=== PATIENT | female | born 2000 | race Two or more races ===

== ENCOUNTER 2022-05-01 12:21 | Outpatient (REF) | payer MEDICAID, SELFPAY ==
--- NOTE | ~2022-05-01 | XR_ITS ---
EXAMINATION: XR ANKLE, RIGHT CLINICAL INFORMATION: Pain. COMPARISON: None TECHNIQUE: AP, lateral, and mortise views of the right ankle. FINDINGS: The bones and soft tissues are normal. No fracture. Alignment is anatomic. Joint spaces are maintained. No joint effusion. XR/XR ankle RT 2V IMPRESSION: Normal right ankle. EXAMINATION: XR ANKLE, LEFT CLINICAL INFORMATION: Pain. COMPARISON: None TECHNIQUE: AP, lateral, and mortise views of the left ankle. FINDINGS: The bones and soft tissues are normal. No fracture. Alignment is anatomic. Joint spaces are maintained. No joint effusion. IMPRESSION: Normal left ankle.
--- NOTE | ~2022-05-01 | XR_ITS ---
EXAMINATION: XR ANKLE, RIGHT CLINICAL INFORMATION: Pain. COMPARISON: None TECHNIQUE: AP, lateral, and mortise views of the right ankle. FINDINGS: The bones and soft tissues are normal. No fracture. Alignment is anatomic. Joint spaces are maintained. No joint effusion. XR/XR ankle LT 2V IMPRESSION: Normal right ankle. EXAMINATION: XR ANKLE, LEFT CLINICAL INFORMATION: Pain. COMPARISON: None TECHNIQUE: AP, lateral, and mortise views of the left ankle. FINDINGS: The bones and soft tissues are normal. No fracture. Alignment is anatomic. Joint spaces are maintained. No joint effusion. IMPRESSION: Normal left ankle.
== END 2022-05-01 12:22 | disposition home or self-care (01) ==
LOC: HO.XRAY 12:21
PROVIDERS: PCP Internal Medicine; Visit Provider Internal Medicine
DX: M25.571 Pain in right ankle and joints of right foot (principal); M25.572 Pain in left ankle and joints of left foot; G89.29 Other chronic pain
CPT/HCPCS: 73600

== ENCOUNTER 2023-12-02 11:52 | Outpatient (REF) | payer MEDICAID, SELFPAY ==
[2023-12-02 14:47] LABS: MANUAL DIFF FLAG NO
[2023-12-02 15:08] LABS: Basophils Percent Auto 0.3 % (0-2); Eosinophils Absolute Auto 0.1 X10*3/uL (0.0-0.4); Eosinophils Percent Auto 1.6 % (0-4); Hematocrit 40.1 % (37.0-47.0); Hemoglobin 13.6 g/dl (12.0-16.0); Imm Gran Abs Auto 0.04 X10*3/uL (0.00-0.03); Imm Gran Pct Auto 0.6 % (0.0-0.4); Lymphocytes Absolute Auto 1.7 X10*3/uL (1.2-4.9); Lymphocytes Percent Auto 26.9 % (20-40); Mean Corpuscular HGB Conc 33.9 g/dl (31.0-35.0); Mean Corpuscular Hemoglobin 29.8 pg (27.0-33.0); Mean Corpuscular Volume 87.7 fL (80.0-98.0); Mean Platelet Volume 11.4 fL (9.4-12.3); Monocytes Absolute Auto 0.5 X10*3/uL (0.1-1.2); Neutrophils Absolute Auto 4.1 x10*3/uL (2.0-8.3); Neutrophils Percent Auto 63.6 % (45-73); Platelet Count 221 X10*3/uL (160-400); Red Blood Count 4.57 X10*6/uL (4.20-5.50); Red Cell Distribution Width 12.7 % (11.0-16.0); White Blood Count 6.4 X10*3/uL (4.8-10.8)
[2023-12-02 15:40] LABS: Anion Gap 13 (12-20); Blood Urea Nitrogen 7 mg/dL (9-16); Calcium 9.5 mg/dL (8.4-10.2); Carbon Dioxide 22 mmol/L (22-29); Chloride 107 mmol/L (96-108); Estimated Glomerular Filt Rate > 60; Glucose Fasting 80 mg/dL (60-99); Potassium 4.1 mmol/L (3.3-5.1); Sodium 138 mmol/L (135-145)
[2023-12-02 16:06] LABS: HCG Quantitative < 2 mIU/mL; TSH reflex Free T4 1.82 uIU/mL (0.32-4.0)
== END 2023-12-02 11:53 | disposition home or self-care (01) ==
LOC: HO.CHCLDS 11:52
PROVIDERS: Visit Provider Internal Medicine
DX: R42 Dizziness and giddiness (principal); R00.2 Palpitations
CPT/HCPCS: 36415; 80048; 84443; 84702; 85025

== ENCOUNTER 2024-01-19 12:52 | Emergency (ER) | payer MEDICAID, SELFPAY ==
--- NOTE | ~2024-01-19 | US_ITS ---
EXAMINATION: US ABDOMEN LIMITED CLINICAL INFORMATION: Right upper quadrant pain. COMPARISON: None available. TECHNIQUE: Real-time imaging of the right upper quadrant abdominal viscera. FINDINGS: PANCREAS: Not imaged. LIVER: Visualized liver is normal in appearance. There is no intrahepatic biliary duct dilatation seen. GALLBLADDER: The gallbladder is partially contracted. No shadowing gallbladder calculi are seen. There is no gallbladder wall thickening or pericholecystic fluid. A negative Navarro sign was reported by the medical technologist. Ringdown artifact of the gallbladder wall suggests adenomyomatosis. COMMON BILE DUCT: Normal in caliber measuring 0.2 cm in diameter. RIGHT KIDNEY: Not imaged. FREE FLUID: None. US/US abdomen limited IMPRESSION: 1. No evidence of acute cholecystitis. 2. Gallbladder adenomyomatosis. Electronically signed by: Michi Oropeza MD 01/20/2024 12:57 AM EDT
--- NOTE | ~2024-01-19 | US_ITS ---
EXAMINATION: US OBSTETRICAL ULTRASOUND CLINICAL INFORMATION: Right lower quadrant pain and tenderness COMPARISON: None available. LMP: 12/23/2023. Gestational age by maternal dates is 20 weeks 6 days. Estimated date of delivery by maternal dates is 09/28/2024. TECHNIQUE: Both transabdominal and endovaginal scanning was performed. FINDINGS: Uterus appears normal. No gestational sac or fluid in the endometrial canal is seen. The endometrium measures 1.3 cm in thickness. No uterine masses are seen. The right ovary measures 3.4 x 2.5 x 3.2 cm and contains a complex probable corpus luteal cyst measuring 2.3 x 1.6 x 2.0 cm. Left ovary measures 2.8 x 2.1 x 2.1 cm small amount of fluid is seen in the left adnexa.. US/US OB pelvic and transvaginal IMPRESSION: Fluid is seen in the left adnexa. No intrauterine is identified at this time. Correlation with beta hCG levels is recommended, as nonvisualization of a gestational sac could be due to an early stage of . Alternatively, lack of an intrauterine gestational sac may also be seen with missed or ectopic , although no adnexal mass is seen to strongly suggest ectopic . Short-term sonographic follow-up and serial beta hCG levels are recommended to assess for development of an intrauterine gestational sac. . Electronically signed by: Orion Mancini MD 01/19/2024 05:30 PM EDT
[2024-01-19 13:25] VITALS: BP 133/88; PULSE 117; RESP 20; TEMP 36.8; O2SAT 97; BMI 27.6
--- NOTE | 2024-01-19 13:25 | ED.GENADULT ---
HPI - General Adult General Chief complaint: OB Stated complaint: r flank pain- Time Seen by Provider: 01/19/24 23:36 Source: patient Mode of arrival: ambulatory Limitations: no limitations History of Present Illness ED Provider: jing WEAVER narrative: Patient's LMP 12/23/2023 had Nexplanon removed last month and has not had her menstruation yet noticed pain in the lower abdominal right upper abdomen for last 3 days slight amount of blood when she wiped was seen at urgent care center sent the patient here. No nausea no vomiting no dysuria frequency Related Data Allergies Allergy/AdvReac Type Severity Reaction Status Date / Time No Known Allergies Allergy Verified 01/19/24 13:30 Review of Systems Review of Systems: Yes all other systems are reviewed and are negative PMFSH Social History Social History Alcohol intake: never Smoked in Last 30 Days: No Use of substances other than those prescribed or required for medical reasons: Yes Substance Use Type: Marijuana Advance Directives: No Advance Directives Information Provided: No Patient : Yes Physical Exam ED Vital Signs: Vital Signs - 24 hr 01/19/24 13:25 01/20/24 00:00 Temperature 98.3 F 98.3 F Pulse Rate 117 H 83 Respiratory Rate 20 18 Blood Pressure 133/88 110/70 Pulse Oximetry 97 99 Oxygen Delivery Method Room Air Room Air BMI result Body Mass Index 27.6 Appearance: Alert. Oriented X3. No acute distress. Eyes: No pallor or icterus ENT: Pharynx normal. Oral Mucosa moist Neck: Normal inspection. Neck supple. CVS: Normal heart rate and rhythm. Pulses normal. Respiratory: No respiratory distress. Equal air entry bilateral, no wheezing/rales/rhonchi Abdomen: Soft and mild deep tenderness right upper quadrant in right mid abdomen no significant tenderness in suprapubic area or right lower quadrant no guarding Bowel sounds are present, no mass palpable, no CVA tenderness Skin: Skin warm and dry. Normal skin color. Normal skin turgor. Extremities: No lower extremity edema. No calf tenderness Neuro: Oriented X 3. Course Course Course Narrative: This is a rapid medical exam performed by Aleksandra Ocampo NP: Additional HPI, ROS, PE not included below will be deferred to primary provider. Patient is a 23-year-old female presenting from urgent care for evaluation of RLQ/flank tenderness x 3 days. HCG was positive there, LMP around 12/22, denies fever but reports chills, denies N/V, has noted some hematuria. Provider at reports that she noted green discharge as well as friable cervix with lesions on pelvic exam. Referred patient here to r/o ectopic, PID, appy. Patient unsure if testing for STIs was done at . Plan: labs, u/s, ? repeat pelvic exam Medical Decision Making Lab Data [facility] Lab Attestation statement: I reviewed the patient's lab results. 01/19/24 14:20 01/19/24 14:20 Labs: Lab Results 01/19/24 Range/Units 14:20 WBC 10.0 (4.8-10.8) X10*3/uL RBC 4.66 (4.20-5.50) X10*6/uL Hgb 13.9 (12.0-16.0) g/dl Hct 39.8 (37.0-47.0) % MCV 85.4 (80.0-98.0) fL MCH 29.8 (27.0-33.0) pg MCHC 34.9 (31.0-35.0) g/dl RDW 12.3 (11.0-16.0) % Plt Count 224 (160-400) X10*3/uL MPV 10.2 (9.4-12.3) fL Immature Gran % (Auto) 0.7 H (0.0-0.4) % Neut % (Auto) 74.0 H (45-73) % Lymph % (Auto) 17.7 L (20-40) % [place] % (Auto) 6.2 (2-11) % Eos % (Auto) 1.0 (0-4) % Baso % (Auto) 0.4 (0-2) % Lymph # (Auto) 1.8 (1.2-4.9) X10*3/uL [place] # (Auto) 0.6 (0.1-1.2) X10*3/uL Eos # (Auto) 0.1 (0.0-0.4) X10*3/uL Baso # (Auto) 0.0 (0.0-0.2) X10*3/uL Abs Immat Gran (auto) 0.07 H (0.00-0.03) X10*3/uL Absolute Neuts (auto) 7.4 (2.0-8.3) x10*3/uL Absolute Nucleated RBC 0.000 (0.0-0.012) X10*3/uL Nucleated RBC % (auto) 0.0 (0.0-0.2) /100WBC PT 11.1 (11.1-13.3) SEC INR 0.9 (0.9-1.1) Sodium 136 (135-145) mmol/L Potassium 3.9 (3.3-5.1) mmol/L Chloride 108 (96-108) mmol/L Carbon Dioxide 21 L (22-29) mmol/L Anion Gap 11 L (12-20) BUN 9 (9-16) mg/dL Creatinine 0.77 (0.5-1.4) mg/dL Estim Creat Clear Calc 98.1 Estimated GFR > 60 Random Glucose 92 (60-115) mg/dL Lactic Acid 0.9 (0.5-2.0) mmol/L Calcium 9.4 (8.4-10.2) mg/dL Total Bilirubin 0.4 (0.0-1.0) mg/dL AST 13 (5-31) U/L ALT 11 (0-31) U/L Alkaline Phosphatase 60 (39-117) U/L Total Protein 7.4 (6.5-8.0) g/dL Albumin 4.4 (3.5-5.0) g/dL Beta HCG, Quant 34 mIU/mL Urine Color Yellow Urine Appearance Clear Urine pH 6.0 (5.0-9.0) Ur Specific [place] <= 1.005 (1.005-1.025) Urine Protein Negative (Neg-Trace) mg/dL Urine Glucose (UA) Negative (Negative) mg/dL Urine Ketones Negative (Negative) mg/dL Urine Blood Negative (Negative) Urine Nitrite Negative (Negative) Ur Leukocyte Esterase Negative (Negative) Independent Interpretation I performed an independent interpretation of an: Ultrasound Radiology Impression Discussion of test interpretation with radiology: I have reviewed the radiologist's reading. Discharge Plan Discharge Clinical Impression: Early stage of Patient Disposition: Home, Self-Care Instructions: Abdominal Pain in (ED) Additional Instructions: You have very early possible Need to recheck in 2 days for the status of by blood check/ultrasound Report to ER if pain in lower abdomen gets worse Follow up with staff occupational therapist if any questions Referrals: Jovan Delgado MD [Physician] - 2 days Print Language: Lao
[2024-01-19 14:27] LABS: MANUAL DIFF FLAG NO
[2024-01-19 14:30] LABS: Appearance Urine Clear; Color Urine Yellow; Glucose Urine UA Negative (Negative); Leukocyte Esterase Urine Negative (Negative); Nitrite Urine Negative (Negative); Specific Gravity - Urine <= 1.005 (1.005-1.025); Urine Blood Negative (Negative); Urine Ketones Negative (Negative); Urine Protein Negative (Neg-Trace)
[2024-01-19 14:37] LABS: Basophils Percent Auto 0.4 % (0-2); Eosinophils Absolute Auto 0.1 X10*3/uL (0.0-0.4); Hematocrit 39.8 % (37.0-47.0); Hemoglobin 13.9 g/dl (12.0-16.0); Imm Gran Abs Auto 0.07 X10*3/uL (0.00-0.03); Imm Gran Pct Auto 0.7 % (0.0-0.4); Lymphocytes Absolute Auto 1.8 X10*3/uL (1.2-4.9); Lymphocytes Percent Auto 17.7 % (20-40); Mean Corpuscular HGB Conc 34.9 g/dl (31.0-35.0); Mean Corpuscular Hemoglobin 29.8 pg (27.0-33.0); Mean Corpuscular Volume 85.4 fL (80.0-98.0); Mean Platelet Volume 10.2 fL (9.4-12.3); Monocytes Absolute Auto 0.6 X10*3/uL (0.1-1.2); Monocytes Percent Auto 6.2 % (2-11); Neutrophils Absolute Auto 7.4 x10*3/uL (2.0-8.3); Platelet Count 224 X10*3/uL (160-400); Red Blood Count 4.66 X10*6/uL (4.20-5.50); Red Cell Distribution Width 12.3 % (11.0-16.0)
[2024-01-19 14:39] LABS: Lactic Acid 0.9 mmol/L (0.5-2.0)
[2024-01-19 14:45] LABS: INTERNATIONAL NORM RATIO 0.9 (0.9-1.1); Prothrombin Time 11.1 SEC (11.1-13.3)
[2024-01-19 14:47] LABS: Alanine Aminotransferase 11 U/L (0-31); Albumin Level 4.4 g/dL (3.5-5.0); Alkaline Phosphatase 60 U/L (39-117); Anion Gap 11 (12-20); Aspartate Amino Transferase 13 U/L (5-31); Bilirubin Total 0.4 mg/dL (0.0-1.0); Blood Urea Nitrogen 9 mg/dL (9-16); Calcium 9.4 mg/dL (8.4-10.2); Carbon Dioxide 21 mmol/L (22-29); Chloride 108 mmol/L (96-108); Creatinine Clr Calc Pharmacy 98.1; Estimated Glomerular Filt Rate > 60; Glucose Random 92 mg/dL (60-115); Potassium 3.9 mmol/L (3.3-5.1); Sodium 136 mmol/L (135-145); Total Protein 7.4 g/dL (6.5-8.0)
[2024-01-19 14:49] LABS: HCG Quantitative 34 mIU/mL
[2024-01-20] VITALS: BP 110/70; PULSE 83; RESP 18; TEMP 36.8; O2SAT 99
[2024-01-20 02:36] VITALS: BP 112/58; PULSE 76; RESP 16; TEMP 36.8; O2SAT 98
[2024-01-20 07:41] LABS: Syphilis Screen Nonreactive (Nonreactive)
== END 2024-01-20 02:37 | disposition home or self-care (01) ==
PROVIDERS: Registered Nurse Emergency; Emergency Provider Internal Medicine
DX: O26.91 Pregnancy related conditions, unspecified, first trimester (principal); R10.31 Right lower quadrant pain; Z3A.01 Less than 8 weeks gestation of pregnancy; Z79.899 Other long term (current) drug therapy
CPT/HCPCS: 36415; 76705; 76801; 76817; 80053; 81003; 83605; 84702; 85025; 85610; 86780; 87040; 99284

== ENCOUNTER 2024-01-21 10:01 | Emergency (ER) | payer MEDICAID, SELFPAY ==
--- NOTE | ~2024-01-21 | US_ITS ---
EXAMINATION: US OBSTETRICAL ULTRASOUND CLINICAL INFORMATION: Positive hCG. COMPARISON: Pelvic ultrasound 01/19/2024. LMP: 12/23/2023. Gestational age by maternal dates is 4 weeks and 1 day. Estimated date of delivery by maternal dates is 09/28/2024. TECHNIQUE: Ultrasound of the maternal pelvis is performed using transabdominal and transvaginal transducers. Transvaginal imaging is performed due to inadequate visualization transabdominally. M-mode Doppler is also performed. FINDINGS: Normal uterine morphology. Homogeneous endometrial canal measuring 1.7 cm in thickness with a very small approximately 0.2 cm internal cystic observation, but otherwise no discrete focal abnormality. No yolk sac or pole identified. Normal morphology of the bilateral ovaries with preserved flow on color and spectral Doppler at the moment of this examination. The right ovary measures 3.6 x 2.1 x 1.7 cm, 6.9 mL and the left ovary measures 2.4 x 2 x 1.7 cm, 4.2 mL. There is a 2.4 x 1.8 x 1.9 cm partially collapsed corpus luteal cyst in the right ovary. No adnexal masses. No free fluid. US/US OB pelvic and transvaginal IMPRESSION: Very small cystic focus in the endometrial canal, indeterminate although potentially could represent a very small gestational sac. Recommend correlation with quantitative hCG and close attention on follow-up. No discrete adnexal mass. No pelvic free fluid. Electronically signed by: Shivani Mcintyre MD 01/21/2024 02:51 PM EDT
--- NOTE | ~2024-01-21 | US_ITS ---
EXAMINATION: US OBSTETRICAL ULTRASOUND CLINICAL INFORMATION: Positive hCG. COMPARISON: Pelvic ultrasound 01/19/2024. LMP: 12/23/2023. Gestational age by maternal dates is 4 weeks and 1 day. Estimated date of delivery by maternal dates is 09/28/2024. TECHNIQUE: Ultrasound of the maternal pelvis is performed using transabdominal and transvaginal transducers. Transvaginal imaging is performed due to inadequate visualization transabdominally. M-mode Doppler is also performed. FINDINGS: Normal uterine morphology. Homogeneous endometrial canal measuring 1.7 cm in thickness with a very small approximately 0.2 cm internal cystic observation, but otherwise no discrete focal abnormality. No yolk sac or pole identified. Normal morphology of the bilateral ovaries with preserved flow on color and spectral Doppler at the moment of this examination. The right ovary measures 3.6 x 2.1 x 1.7 cm, 6.9 mL and the left ovary measures 2.4 x 2 x 1.7 cm, 4.2 mL. There is a 2.4 x 1.8 x 1.9 cm partially collapsed corpus luteal cyst in the right ovary. No adnexal masses. No free fluid. US/US pelvic ovarian doppler IMPRESSION: Very small cystic focus in the endometrial canal, indeterminate although potentially could represent a very small gestational sac. Recommend correlation with quantitative hCG and close attention on follow-up. No discrete adnexal mass. No pelvic free fluid. Electronically signed by: Shivani Mcintyre MD 01/21/2024 02:51 PM EDT
[2024-01-21 10:02] VITALS: BP 104/68; PULSE 103; RESP 18; TEMP 37; O2SAT 97; BMI 27.6
[2024-01-21 11:03] LABS: HCG Quantitative 92 mIU/mL
--- NOTE | 2024-01-21 11:09 | ED_ITS ---
HPI - General Adult General Chief complaint: Recheck/Abnormal Lab/Rx Stated complaint: bloodwork/ultrasound Time Seen by Provider: 01/21/24 11:08 Source: patient Mode of arrival: ambulatory Limitations: no limitations History of Present Illness ED Provider: Caroline Dunn PA-C HPI narrative: Patient is a 23 year old assigned female at with no reported medical history presenting to the emergency department today for follow up labs and an ultrasound. Patient states that she was seen on 01/19/2024 and at that visit she was told that she may be but to return in 2 days for repeat lab work and an ultrasound. Patient denies any dizziness, lightheadedness, abdominal pain, nausea, vomiting, fever, chills, blurry vision, double vision, loss of vision, chest pain, difficulty breathing, shortness of breath, back pain, night sweats, pain with urination, increased urinary frequency, increased urinary urgency, blood in her urine or stool, syncope or a near syncopal episode, recent trauma or falls, bowel incontinence, bladder incontinence, or any other complaints at this time. Relieving factors: none Exacerbating factors: none Associated symptoms: denies other symptoms Treatments prior to arrival: none Related Data Allergies Allergy/AdvReac Type Severity Reaction Status Date / Time No Known Allergies Allergy Verified 01/21/24 10:06 Review of Systems Constitutional: Constitutional: Reports no additional constitutional complaints, Denies chills, Denies fever(s) and Denies night sweats Eyes: Eyes: Reports no additional eye complaints, Denies blurry vision, Denies change in vision, Denies diplopia, Denies eye discharge, Denies loss of vision and Denies eye pain ENT: Denies dizziness Cardiovascular: Cardiovascular: Reports no additional cardiovascular complaints, Denies chest pain, Denies lightheadedness, Denies Loss of Consciousness and Denies dyspnea Respiratory: Respiratory: Reports no additional respiratory complaints and Denies dyspnea Gastrointestinal: Gastrointestinal: Reports no additional gastrointestinal complaints, Denies abdominal pain, Denies melena, Denies hematochezia, Denies change in bowel habits and Denies change in stool character Genitourinary: Genitourinary: Denies hematuria, Denies urinary frequency, Denies dysuria, Denies urinary incontinence, Denies urinary hesitancy and Denies urinary urgency Musculoskeletal: Musculoskeletal: Reports no additional musculoskeletal complaints, Denies numbness and Denies tingling Neurologic: Denies dizziness, Denies loss of vision, Denies numbness and Denies tingling Psychiatric: Psychiatric: Reports no additional psychiatric complaints Endocrine: Endocrine: Reports no additional endocrine complaints Hematologic/Lymphatic: Hematologic/Lymphatic: Reports no additional hematologic/lymphatic complaints Allergic/Immunologic: Allergic/Immunologic: Reports no additional allergic/immunologic complaints [facility] Past Medical History Attestation statement: The following information was validated with the patient. Source: old records reviewed and nursing notes reviewed Social History Social History Alcohol intake: never Substance Use Type: Marijuana Advance Directives: No Advance Directives Information Provided: Yes Physical Exam ED Vital Signs: Vital Signs - 24 hr 01/21/24 10:02 01/21/24 12:00 01/21/24 13:44 Temperature 98.6 F 98.4 F 98.4 F Pulse Rate 103 H 94 94 Respiratory Rate 18 18 18 Blood Pressure 104/68 115/62 115/62 Pulse Oximetry 97 97 97 Oxygen Delivery Method Room Air Room Air Room Air BMI result Body Mass Index 27.6 Const General: cooperative, no acute distress, alert and awake Nutritional Appearance: well nourished Orientation/consciousness: patient oriented x3 Limitations: no limitations HENMT Head: Yes normal to inspection and Yes atraumatic Ears: hearing grossly normal bilaterally and external ears normal General nose exam: Normal external nose present, no nasal discharge noted and no epistaxis Face and sinus: Yes normal facial exam, No abrasion and No laceration Mouth: Normal oral and palatal mucosa present, no drooling and no muffled voice Eyes General: appearance normal, both eyes and all related structures Periorbital: periorbital findings normal Eyelids: Yes eyelids normal Conjunctivae: conjunctivae normal Pupils: Equal, round and reactive pupils present EOM: EOMs intact bilaterally Neck Neck: Yes normal visual inspection, Yes full ROM and Yes no lymphadenopathy Chest Chest palpation & inspection: normal inspection of the chest Resp Effort & Inspection: normal respiratory effort and able to speak in complete sentences GI Inspection: Yes normal to inspection Neuro General: patient oriented x3 and moves all extremities Cranial nerves: Yes Equal, round and reactive pupils present Cognition (Neuro): normal cognition Extrem General: Yes normal to inspection, Yes full ROM and Yes capillary refill normal Psych Appearance: grossly normal Mental Status: mental status grossly normal Affect: normal affect Attitude: cooperative Thought process: Normal thought process present Thought content: Normal thought content present Insight: Good insight present (Psych) Medical Decision Making Medical Decision Making [facility] Narrative: Patient is a 23 year old assigned female at with no reported medical h istory presenting to the emergency department today for HCG re-evaluation. Patient's physical exam was unremarkable. Patient's blood work showed an increased HCG when compared to the level drawn on 01/19/2024. Patient's US showed no acute process. I explained my physical exam findings as well as all test results to the patient. I answered all questions asked by the patient. I stressed the importance of the patient taking her medication as directed (either prescribed or as the over the counter packaging recommends). I stressed the importance of the patient following up with her primary care provider and an OBGYN. I stressed the importance of the patient returning to the emergency department immediately if her symptoms were to worsen or if she were to develop any dizziness, shortness of breath, difficulty breathing, chest pain, blurry vision, loss of vision, nausea, vomiting, abdominal pain, fever, chills, back pain, or any other complaints. Patient verbalized agreement and understanding with this treatment plan and discharge. Differential Diagnosis Differential Diagnoses: The differential diagnosis associated with the pres entation includes Admission/Observation Consideration of admission/observation: Escalation of care including admissio n/observation considered Patient would have been admitted to the hospital had her work up had any findings where hospital admission was appropriate and her clinical presentation warranted hospital admission. Lab Data [facility] Lab Attestation statement: I reviewed the patient's lab results. My interpretation of these results are in the [facility] Rationale portion of this note. Labs: Lab Results 01/21/24 Range/Units 10:32 Beta HCG, Quant 92 mIU/mL Independent Interpretation I performed an independent interpretation of an: Ultrasound Interpretation: My interpretation is in agreement with the radiologist's impression of this imaging study. EXAMINATION: US OBSTETRICAL ULTRASOUND CLINICAL INFORMATION: Positive hCG. COMPARISON: Pelvic ultrasound 01/19/2024. LMP: 12/23/2023. Gestational age by maternal dates is 4 weeks and 1 day. Estimated date of delivery by maternal dates is 09/28/2024. TECHNIQUE: Ultrasound of the maternal pelvis is performed using transabdominal and transvaginal transducers. Transvaginal imaging is performed due to inadequate visualization transabdominally. M-mode Doppler is also performed. FINDINGS: Normal uterine morphology. Homogeneous endometrial canal measuring 1.7 cm in thickness with a very small approximately 0.2 cm internal cystic observation, but otherwise no discrete focal abnormality. No yolk sac or pole identified. Normal morphology of the bilateral ovaries with preserved flow on color and spectral Doppler at the moment of this examination. The right ovary measures 3.6 x 2.1 x 1.7 cm, 6.9 mL and the left ovary measures 2.4 x 2 x 1.7 cm, 4.2 mL. There is a 2.4 x 1.8 x 1.9 cm partially collapsed corpus luteal cyst in the right ovary. No adnexal masses. No free fluid. US/US OB pelvic and transvaginal IMPRESSION: Very small cystic focus in the endometrial canal, indeterminate although potentially could represent a very small gestational sac. Recommend correlation with quantitative hCG and close attention on follow-up. No discrete adnexal mass. No pelvic free fluid. Electronically signed by: Shivani Mcintyre MD 01/21/2024 02:51 PM EDT Dictated By: Shivani Mcintyre Signed By: Electronically signed by Shivani Mcintyre 01/21/24 1452 Radiology Impression Discussion of test interpretation with radiology: I have reviewed the radiologist's reading. Discharge Plan Discharge Clinical Impression: Possible , Elevated serum hCG Patient Disposition: Home, Self-Care Instructions: (ED) Additional Instructions: Your HCG level went up over the last 2 days. This is consistent with early however, it can also be consistent with early ectopic . Your US was reassuring but requires continued follow up. Follow up with your primary care provider and an OBGYN. Return to the emergency department immediately if your symptoms worsen or if you develop any dizziness, shortness of breath, difficulty breathing, chest pain, blurry vision, loss of vision, nausea, vomiting, abdominal pain, fever, chills, back pain, or any other complaints. Referrals: Nena Morin MD [Primary Care Provider] - Jovan Delgado MD [Physician] - (Call to establish and follow up with an OBGYN. ) Interventions: ED Discharge Assessment Last Done: 01/21/24 13:44 Discharge Date/Time: 01/21/24 13:45 Print Language: Latvian
[2024-01-21 12:00] VITALS: BP 115/62; PULSE 94; RESP 18; TEMP 36.9; O2SAT 97
[2024-01-21 13:44] VITALS: BP 115/62; PULSE 94; RESP 18; TEMP 36.9; O2SAT 97
== END 2024-01-21 13:45 | disposition home or self-care (01) ==
PROVIDERS: Emergency Provider Emergency Medicine; PCP Internal Medicine
DX: O02.81 Inappropriate change in quantitative human chorionic gonadotropin (hCG) in early pregnancy (principal); R10.2 Pelvic and perineal pain; R79.89 Other specified abnormal findings of blood chemistry; Z79.899 Other long term (current) drug therapy
CPT/HCPCS: 36415; 76801; 76817; 84702; 93975; 99283; 99284

== ENCOUNTER 2024-10-16 12:32 | Outpatient (REF) | payer MEDICAID, SELFPAY ==
--- OUTSIDE RECORDS SUMMARY | 2024-10-16 13:54 | XMS_ITS | Encounter Summary ---
Author Organization [email or web address] Address [address] [place] [address] [address] [place] [address] Care Team Providers Care [employer] V[employer] Worker Name Role Phone Nena Morin MD Primary Care Provider [phone] Encounter Details Date Type Department Care Team (Late Contact Info) Description 06/09/2024 Telephone [facility] [address] [place] [address] Nena Morin MD [address] [place] [address] Social History Tobacco Use Types Packs/Day Years Used Date Smoking Tobacco: Never Smokeless Tobacco: Never Alcohol Use Standard Drinks/Week Comments Never 0 (1 standard drink = 0.6 oz pur e alcohol) Depression Answer Date Recorded Patient Health Questionnaire-9 Score 9 02/16/2023 Patient Health Questionnaire-9 Score 9 02/16/2023 Last PHQ-9: Questionnaire Data Not on file 1 Depression Answer Date Recorded Patient Health Questionnaire-2 Score 1 02/16/2023 Comments Unknown Sex and Gender Information Value Date Recorded Sex Assigned at Female 03/02/2022 10:39 AM EDT Legal Sex Female 10:39 AM EDT Gender Identity Female 03/02/2022 10:39 AM EDT Sexual Orientation Choose not to disclose 2021 10:39 AM EDT documented as of this encounter Plan of Treatment Upcoming Encounters Date Type Department Care Team ([facility] Contact Info) Description 11/21/2024 2:00 PM EDT Office Visit [facility] [address] [place] [address] Nena Morin MD [address] [place] [address] documented as of this encounter Visit Diagnoses Not on filedocumented in this encounter Additional Health Concerns Assessment Noted Time PHQ-9 Depression Total Score: 9 02/17/20 23 2:22 PM EDT documented as of this encounter Care Teams [employer] Worker Relationship Specialty Start Date End Date Nena Morin MD [address] [place] [address] PCP - General Internal Medicine 01/20/21 Natividad Suarez [employer] Ironer 08/11/24 documented as of this encounter
[2024-10-16 14:21] LABS: Appearance Urine Clear; Color Urine Yellow; Glucose Urine UA Negative (Negative); Leukocyte Esterase Urine Moderate (2+) (Negative); Nitrite Urine Negative (Negative); PH 6.5 (5.0-9.0); UMIC TRIGGER UA YES; Urine Blood Large (3+) (Negative); Urine Ketones Negative (Negative); Urine Protein Trace mg/dL (Neg-Trace)
[2024-10-16 14:26] LABS: Bacteria Urine 1+ (None Seen); Hyaline Casts Urine 0-2 /LPF (0-2); RBC Urine >20 /HPF (0-2); WBC Urine >50 /HPF (0-5)
[2024-10-16 14:56] LABS: Total Protein Urine Random 20 mg/dL (<12)
== END 2024-10-16 12:33 | disposition home or self-care (01) ==
LOC: HO.CHCLDS 12:32
PROVIDERS: Visit Provider Internal Medicine
DX: I10 Essential (primary) hypertension (principal)
CPT/HCPCS: 81001; 84156

== ENCOUNTER 2024-11-06 12:34 | Outpatient (REF) | payer MEDICAID, SELFPAY ==
--- OUTSIDE RECORDS SUMMARY | 2024-11-06 13:09 | XMS_ITS | Encounter Summary ---
Author Organization [employer] Address [address] [place] [address] Care Team Providers Care Ssis Developer Name Role Phone Nena Morin MD Primary Care Provider [phone] Reason for Visit * Reason Comments Care Coordination [id number]/LENNOX Mcfadden- Follow up call Encounter Details Date Type Department Care Team (Latest Contact Info) Description 11/02/[address] [facility] [address] [place] [address] Nena Morin MD [address] [place] [address] Care Coordination (LENNOX Delgado- Follow up call) Social History Tobacco Use Types Packs/Day Years Used Date Smoking Tobacco: Never Smokeless Tobacco: Never Alcohol Use Standard Drinks/Week Comments Never 0 (1 standard drink = 0.6 oz pur e alcohol) Depression Answer Date Recorded Patient Health Questionnaire-9 Score 3 10/16/2024 Patient Health Questionnaire-9 Score 3 10/16/2024 Last PHQ-9: Questionnaire Data Not on file 0 10/16/2024 Housing Stability Answer Date Recorded What is your housing situation today? I have robin ezio 07/19/[address] you li ve. Do you have problems with any of the following? None of the above 07/19/2024 Food Insecurity Answer Date Recorded Within the past 12 months, y ou worried that your food would run out before you got money to buy more: Never True 07/19/2024 Within the past 12 months,th e food you bought just didn't last and you didn't have enough money to get more: Never True Transportation Answer Date Recorded In the past 12 months, has l ack of transportation kept you from medical appts, meetings, work or from getting things needed for daily living? No 07/19/2024 Utilities Answer Date Recorded In the past 12 months, has t he electric, gas, oil or water company threatened to shut off services in your home? No 07/19/2024 Depression Answer Date Recorded Patient Health Questionnaire-2 Score 0 10/16/2024 Internet Access Answer Date Recorded Internet Access Q1 Yes 07/19/2024 Internet Access Q2 Not on file 07/19/2024 Estimated Date of Delivery Comme nts Yes 10/01/2024 Based on [facility] [place] Sex and Gender Information Value Date Recorded Sex Assigned at Female 03/02/2022 10:39 AM EDT Legal Sex Female 10:39 AM EDT Gender Identity Female 03/02/2022 10:39 AM EDT Sexual Orientation Choose not to disclose 2021 10:39 AM EDT documented as of this encounter Progress Notes * Oxana Cerda - 11/02/2024 3:54 PM EDT CHW Oxana Cerda, placed outbound call to patient introducing herself calling from [facility]. Patient's name, and address confirmed. CHW followed up on apartment search. Patient states not sure if she received link CHW sent via [employer]. CHW sent it again: [employer] in [place] while patient was on the phone as CHW was able to confirm with received. Patient to check link and reach out to CHW if further assistance is needed. CHW reminded patient of safety first. Not going alone to meet anyone, verifying rental property, not giving montoya deposit ect. Patient verbalized understanding. No further questions or concerns. CHW reinforced direct contact information for any additional questions or concerns and extended clinic hours on Mondays and Wednesdays, and Walk-In Urgent Care Located in [facility]. Patient provided with after-hours line for [facility], , which offer night time triage service and option to transfer to radiation control health physicist provider if needed. Patient verbalizes understanding, and able to repeat back to typewriter ribbon winder. A follow up call will be placed within 10 days, patient agrees with plan. documented in this encounter Plan of Treatment Upcoming Encounters Date Type Department Care Team (Late st Contact Info) Description 11/21/2024 2:00 PM EDT Office Visit [facility] [address] [place] [address] Nena Morin MD [address] [place] [address] documented as of this encounter Visit Diagnoses Not on filedocumented in this encounter Additional Health Concerns Assessment Noted Time PHQ-9 Depression Total Score: 3 10/17/19 25 12:13 PM EDT documented as of this encounter Care Teams Ssis Developer Relationship Specialty Start Date End Date Nena Morin MD [address] [place] [address] PCP - General Internal Medicine 01/20/21 Natividad Suarez Soil Checker 08/11/24 documented as of this encounter
--- OUTSIDE RECORDS SUMMARY | 2024-11-06 13:09 | XMS_ITS | Clinical Summary ---
Author Organization Patient Business [employer] [facility] Address [address] [place] [address] Care Team Providers Care Body Wirer Name Role Phone Nena Morin MD Primary Care Provider [phone] Allergies No known active allergies Medications No known medications Active Problems No known active problems Encounters Date Type Department Care Team Description 10/31/2024 10:17 AM EDT - 10/31/2024 1:08 PM EDT Emergency [facility] Emergency [address] [place] [address] Byron James DO Chest pain, unspecified type (Primary Dx); Acute chest pain; Shortness of breath Discharge Disposition: Home or Self Care from Last 3 Months Social History Tobacco Use Types Packs/Day Years Used Date Smoking Tobacco: Never Assessed Comments Unknown Sex and Gender Information Value Date Recorded Sex Assigned at Not on file Legal Sex Female 4:55 AM EST Gender Identity Not on file Sexual Orientation Not on file Obstetrics History Last Filed Vital Signs Vital Sign Reading Time Taken Comments Blood Pressure 120/81 10/31/2024 10:49 AM EDT Pulse 87 10/31/2024 10:49 AM EDT Temperature 36.6 C (97.9 F) 10/31/2024 10:49 AM EDT Respiratory Rate 20 10/31/2024 10:49 AM EDT Oxygen Saturation 97% 10/31/2024 10:49 AM EDT Inhaled Oxygen Concentration - - Weight 72.6 kg (160 lb) 10/31/2024 6:37 AM EDT Height 154.9 cm (5' 1 ) 10/31/2024 6:37 AM EDT Body Mass Index 30.23 10/31/2024 6:37 AM EDT Plan of Treatment Health Maintenance Due Date Last Done Comments Gonorrhea/Chlamydia Screening 1999 Hepatitis A Vaccines (2 of 2 - 2-dose series) 11/08/2018 05/11/2018 Cervical Cancer Screening: Pap Smear 12/04/2020 Cholesterol Screening (Lipid Panel) 04/12/2023 HIV Screening 04/12/2023 Hepatitis C Screening 04/12/2023 Social Influencers of Health Screening 04/12/2023 COVID-19 Vaccine ( season) 2024 Influenza Vaccine (#1) 2025 9, 02/23/2017, 01/15/2016, Additional history exists Depression Screening 10/16/2025 10/16/2024 Hypertension/CHF/CAD Annual BMP Blood Test 10/31/2025 10/31/2024 DTaP,Tdap,and Td Vaccines (9 - Td or Tdap) 07/11/2034 07/11/2024, 10/26/2016, 03/07/2012, Additional history exists HIB Vaccines Completed 03/30/2001, 05/04, 03/22/2000, Additional history exists Hepatitis B Vaccines Completed 03/30/2001, 10/01/2000, 1999 Pneumococcal Vaccine: Pediatrics (0 to 5 Years) and At-Risk Patients (6 to 49 Years) Completed 03/30/2001, 05/27/2000, 03/22/2000, Additional history exists IPV Vaccines Completed 02/04/2004, 05/04, 03/22/2000, Additional history exists MMR Vaccines Completed 02/04/2004, 12/24/2000 Varicella Vaccines Completed 01/31/2010, 12/24/2000 HPV Vaccines Completed 11/09/2012, 07/01, 05/09/2012 Meningococcal ACWY Vaccine Completed 02/23/2017, Meningococcal B Vaccine Aged Out No l onger eligible based on patient's age to complete this topic RSV Immunization Patients Under 20 months Aged Out No longer eligible based on patient's age to complete this topic Procedures Procedure Name Priority Date/Time Associated Diagnosis Comments CT ANGIO CHEST WO AND/OR W CONTRAST STAT 10/31/2024 12:09 PM EDT Chest pain, unspecified type TROPONIN I HIGH SENSITIVITY STAT 10/31/2024 10:49 AM EDT XR CHEST 2 VIEWS STAT 10/31/2024 9:36 AM EDT CBC WITH AUTO DIFFERENTIAL STAT 10/31/2024 7:53 AM EDT B-TYPE NATRIURETIC PEPTIDE STAT 10/31/2024 7:53 AM EDT MAGNESIUM STAT 10/31/2024 7:53 AM EDT LIPASE STAT 10/31/2024 7:53 AM EDT COMPREHENSIVE METABOLIC PANEL STAT 10/31/2024 7:53 AM EDT CBC AND DIFFERENTIAL STAT 10/31/2024 7:53 AM EDT TROPONIN I HIGH SENSITIVITY STAT 10/31/2024 7:53 AM EDT ECG 12-LEAD STAT 10/31/2024 6:41 AM EDT from Last 3 Months Results * CT Angio Chest wo and/or w Contrast (10/31/2024 12:09 PM EDT) Anatomical Region Laterality Modality Body Computed Tomogra phy 10/31/2024 12:1 8 PM EDT Impressions 10/31/2024 12:24 PM EDT 1. No pulmonary embolism. No acute findings. 2. Stable 13 x 10 mm soft tissue nodule in the left paratracheal region adjacent to the lower pole of the left thyroid lobe. Unclear whether this arises from or immediately adjacent to the thyroid. This could be further evaluated with ultrasound. -------- FINAL REPORT -------- Dictated By: Loki Farley Dictated Date: 10/31/2024 12:18 ET Assigned Physician: Loki Farley Reviewed and Electronically Signed By: Loki Farley Signed Date: 10/31/2024 12:24 ET Workstation ID: [id number] Transcribed By: Self Edit Transcribed Date: 10/31/2024 12:18 ET Narrative 10/31/2024 12:24 PM EDT PROCEDURE: CT pulmonary angiogram. HISTORY: PE suspected, high prob. TECHNIQUE: CT of the chest with intravenous contrast administration with pulmonary angiogram protocol. Coronal and sagittal reformats and MIP reconstructions were created. Dose length product: 300 mGy-cm. Contrast dose: 90 mL ISOVUE-370. COMPARISON: 07/18/2022. FINDINGS: LUNGS/PLEURA: There is a small right posterior tracheal diverticulum. Normal caliber airways with no endobronchial filling defect. Mild bilateral dependent atelectasis. No pleural effusion or pneumothorax. MEDIASTINUM/CHAVA: There is a stable 1.3 x 1.0 cm left paratracheal soft tissue nodule. Unclear whether this arises adjacent to or is exophytic from the lower pole of the left thyroid lobe. No hilar lymphadenopathy. VASCULATURE: Normal caliber pulmonary arteries. No pulmonary embolism. Normal appearance of the great vessels. CARDIAC: Normal heart size. No coronary artery calcification. CHEST WALL: No axillary or supraclavicular lymphadenopathy. LIMITED ABDOMEN: Unremarkable. BONES: Slight S-shaped curvature of the thoracic spine. Procedure Note Loki Farley MD - 10/31/2024 PROCEDURE: CT pulmonary angiogram. HISTORY: PE suspected, high prob. TECHNIQUE: CT of the chest with intravenous contrast administration withpulmonary angiogram protocol. Coronal and sagittal reformats and MIPreconstructions were created. Dose length product: 300 mGy-cm. Contrast dose: 90 mL ISOVUE-370. COMPARISON: 07/18/2022. FINDINGS: LUNGS/PLEURA: There is a small right posterior tracheal diverticulum.Normal caliber airways with no endobronchial filling defect. Mildbilateral dependent atelectasis. No pleural effusion or pneumothorax. MEDIASTINUM/CHAVA: There is a stable 1.3 x 1.0 cm left paratracheal softtissue nodule. Unclear whether this arises adjacent to or is exophyticfrom the lower pole of the left thyroid lobe. No hilar lymphadenopathy. VASCULATURE: Normal caliber pulmonary arteries. No pulmonary embolism.Normal appearance of the great vessels. CARDIAC: Normal heart size. No coronary artery calcification. CHEST WALL: No axillary or supraclavicular lymphadenopathy. LIMITED ABDOMEN: Unremarkable. BONES: Slight S-shaped curvature of the thoracic spine. IMPRESSION: 1. No pulmonary embolism. No acute findings. 2. Stable 13 x 10 mm soft tissue nodule in the left paratracheal regionadjacent to the lower pole of the left thyroid lobe. Unclear whether thisarises from or immediately adjacent to the thyroid. This could be furtherevaluated with ultrasound. -------- FINAL REPORT -------- Dictated By: Loki Farley Dictated Date: 10/31/2024 12:18 ET Assigned Physician: Loki Farley Reviewed and Electronically Signed By: Loki Farley Signed Date: 10/31/2024 12:24 ET Workstation ID: [id number] Transcribed By: Self Edit Transcribed Date: 10/31/2024 12:18 ET Byron James DO IMG CT PROCEDURES Final Res ult * Troponin I high sensitivity (10/31/2024 10:49 AM EDT) Only the most recent of2 resultswithin the time period is included. High Sensitivity Troponin I <3 <=54 ng/L LAB CHEMISTRY METHOD 10/31/2024 12:01 PM EDT [facility] Blood Venous blood specimen / Unknown Venipuncture / Unknown 10/31/2024 10:49 AM EDT 10/31/2024 11:12 AM EDT Narrative [facility] - 10/31/2024 12:01 PM EDT High levels of biotin in samples may falsely decrease hsTroponin values. Use caution when interpreting hsTroponin results in patients taking biotin who exhibit renal impairment (eGFR <60) or in patients taking more than 20 mg/day of biotin. us Byron James DO LAB BLOOD ORDERABLES Final Result [facility] [address] [place] [address], [place] [phone] * XR Chest 2 Views (10/31/2024 9:36 AM EDT) Anatomical Region Laterality Modality Body Radiographic [place] ging 10/31/2024 9:43 AM EDT Impressions 10/31/2024 9:44 AM EDT No acute findings. -------- FINAL REPORT -------- Dictated By: Loki Farley Dictated Date: 10/31/2024 09:43 ET Assigned Physician: Loki Farley Reviewed and Electronically Signed By: Loki Farley Signed Date: 10/31/2024 09:44 ET Workstation ID: [id number] Transcribed By: Self Edit Transcribed Date: 10/31/2024 09:43 ET Narrative 10/31/2024 9:44 AM EDT PROCEDURE: PA and lateral radiographs of the chest. HISTORY: chest pain. COMPARISON: 07/17/2022. FINDINGS: Lungs, pleural spaces, pulmonary vasculature, and cardiomediastinal contours are normal. Partially visible lower thoracic and lumbar S-shaped scoliosis. Procedure Note Loki Farley MD - 10/31/2024 PROCEDURE: PA and lateral radiographs of the chest. HISTORY: chest pain. COMPARISON: 07/17/2022. FINDINGS: Lungs, pleural spaces, pulmonary vasculature, and cardiomediastinalcontours are normal. Partially visible lower thoracic and lumbar S-shapedscoliosis. IMPRESSION: No acute findings. -------- FINAL REPORT -------- Dictated By: Loki Farley Dictated Date: 10/31/2024 09:43 ET Assigned Physician: Loki Farley Reviewed and Electronically Signed By: Loki Farley Signed Date: 10/31/2024 09:44 ET Workstation ID: [id number] Transcribed By: Self Edit Transcribed Date: 10/31/2024 09:43 ET Byron James DO IMG XR PROCEDURES Final Res ult * (ABNORMAL) CBC auto differential (10/31/2024 7:53 AM EDT) [facility] WBC 6.4 4.8 - 10.8 K/mcL LAB HEMETOLOGY METHOD 10/31/2024 8:23 AM [facility] RBC 5.20(H) 3.80 - 4.80 M/mcL LAB HEMETOLOGY METHOD 10/31/2024 8:23 AM [facility] Hemoglobin 13.6 11.5 - 16.0 g/dL LAB HEMETOLOGY METHOD 10/31/2024 8:23 AM [facility] Hematocrit 43.8 35.0 - 47.0 % LAB HEMETOLOGY METHOD 10/31/2024 8:23 AM [facility] MCV 83.7 79.0 - 98.0 FL LAB HEMETOLOGY METHOD 10/31/2024 8:23 AM [facility] MCH 26.0(L) 27.0 - 32.0 pcg LAB HEMETOLOGY METHOD 10/31/2024 8:23 AM [facility] MCHC 31.1(L) 32.0 - 37.0 g/dL LAB HEMETOLOGY METHOD 10/31/2024 8:23 AM [facility] RDW 15.2(H) 11.0 - 15.0 % LAB HEMETOLOGY METHOD 10/31/2024 8:23 AM [facility] Platelets 239 130 - 400 K/mcL LAB HEMETOLOGY METHOD 10/31/2024 8:23 AM [facility] MPV 11.6(H) 7.0 - 11.0 FL LAB HEMETOLOGY METHOD 10/31/2024 8:23 AM [facility] NRBC 0.0 <1.0 % LAB HEMETOLOGY METHOD 10/31/2024 8:23 AM [facility] NRBC Absolute 0.00 <0.10 K/mcL LAB HEMETOLOGY METHOD 10/31/2024 8:23 AM [facility] Neutrophils Relative 58.2 % LAB HEMETOLOGY METHOD 10/31/2024 8:23 AM [facility] Lymphocytes Relative 29.8 % LAB HEMETOLOGY METHOD 10/31/2024 8:23 AM [facility] Monocytes Relative 8.0 % LAB HEMETOLOGY METHOD 10/31/2024 8:23 AM [facility] Eosinophils Relative 3.1 % LAB HEMETOLOGY METHOD 10/31/2024 8:23 AM [facility] Basophils Relative 0.3 % LAB HEMETOLOGY METHOD 10/31/2024 8:23 AM [facility] Immature Granulocytes Relative 0.6 % LAB HEMETOLOGY METHOD 10/31/2024 8:23 AM [facility] Neutrophils Absolute 3.71 1.50 - 7.00 K/mcL LAB HEMETOLOGY METHOD 10/31/2024 8:23 AM [facility] Lymphocytes Absolute 1.90 1.00 - 5.00 K/mcL LAB HEMETOLOGY METHOD 10/31/2024 8:23 AM [facility] Monocytes Absolute 0.51 0.20 - 1.00 K/mcL LAB HEMETOLOGY METHOD 10/31/2024 8:23 AM [facility] Eosinophils Absolute 0.20 0.00 - 0.50 K/mcL LAB HEMETOLOGY METHOD 10/31/2024 8:23 AM [facility] Basophils Absolute 0.02 0.00 - 0.20 K/mcL LAB HEMETOLOGY METHOD 10/31/2024 8:23 AM [facility] Immature Granulocytes Absolute 0.04(H) 0.00 - 0.03 K/mcL LAB HEMETOLOGY METHOD 10/31/2024 8:23 AM EDT [facility] Blood Venous blood specimen / Unknown Venipuncture / Unknown 10/31/2024 7:53 AM EDT 10/31/2024 8:17 AM EDT us Byron James DO LAB BLOOD ORDERABLES Final Result Performing Organization Address [facility]/ZIP Co de Phone Number [facility] [address] [place] [address], [place] [phone] * B-type natriuretic peptide (10/31/2024 7:53 AM EDT) BNP 2 <=100 pcg/mL LAB CHEMISTRY METHOD 10/31/2024 8:53 AM EDT [facility] Blood Venous blood specimen / Unknown Venipuncture / Unknown 10/31/2024 7:53 AM EDT 10/31/2024 8:17 AM EDT us Byron James DO LAB BLOOD ORDERABLES Final Result Performing Organization Address [facility] de Phone Number [facility] [address] [place] [address], [place] [phone] * Magnesium (10/31/2024 7:53 AM EDT) Magnesium 2.0 1.9 - 2.6 mg/dL LAB CHEMISTRY METHOD 10/31/2024 8:59 AM EDT [facility] Blood Venous blood specimen / Unknown Venipuncture / Unknown 10/31/2024 7:53 AM EDT 10/31/2024 8:17 AM EDT us Byron James DO LAB BLOOD ORDERABLES Final Result Performing Organization Address City/[facility]/ZIP Co de Phone Number [facility] [address] [place] [address], [place] [phone] * Lipase (10/31/2024 7:53 AM EDT) Pathologist [facility] Lipase 26 13 - 75 unit/L LAB CHEMISTRY METHOD 10/31/2024 8:59 AM [facility] Blood Venous blood specimen / Unknown Venipuncture / Unknown 10/31/2024 7:53 AM EDT 10/31/2024 8:17 AM EDT Byron James DO LAB BLOOD ORDERABLES Final Result [facility] [address] [place] [address], [place] [phone] * Comprehensive metabolic panel (10/31/2024 7:53 AM EDT) [facility] Sodium 137 133 - 145 mmol/L LAB CHEMISTRY METHOD 10/31/2024 8:59 AM [facility] Potassium 4.6 3.5 - 5.5 mmol/L LAB CHEMISTRY METHOD 10/31/2024 8:59 AM [facility] Chloride 105 96 - 110 mmol/L LAB CHEMISTRY METHOD 10/31/2024 8:59 AM [facility] CO2 26 21 - 32 mmol/L LAB CHEMISTRY METHOD 10/31/2024 8:59 AM [facility] Anion Gap 6 3 - 11 LAB CHEMISTRY METHOD 10/31/2024 8:59 AM [facility] Glucose 94 70 - 100 mg/dL LAB CHEMISTRY METHOD 10/31/2024 8:59 AM [facility] BUN 12 5 - 25 mg/dL LAB CHEMISTRY METHOD 10/31/2024 8:59 AM [facility] Creatinine 0.78 0.50 - 1.10 mg/dL LAB CHEMISTRY METHOD 10/31/2024 8:59 AM [facility] eGFR 109 >=60 mL/min/1. 73m2 LAB CHEMISTRY METHOD 10/31/2024 8:59 AM T [facility] Comment:Calculation based on the Chronic Kidney Disease Epidemiology Collaboration (CKD-EPI) equation refit without adjustment for race. BUN/Creatinine Ratio 15.4 LAB CHEMISTRY METHOD 10/31/2024 8:59 AM T [facility] Calcium 9.2 8.5 - 10.5 mg/dL LAB CHEMISTRY METHOD 10/31/2024 8:59 AM [facility] AST (SGOT) 13 10 - 42 unit/L LAB CHEMISTRY METHOD 10/31/2024 8:59 AM [facility] ALT (SGPT) 20 10 - 60 unit/L LAB CHEMISTRY METHOD 10/31/2024 8:59 AM [facility] Alkaline Phosphatase 107 42 - 121 unit/L LAB CHEMISTRY METHOD 10/31/2024 8:59 AM [facility] Total Protein 7.1 6.0 - 8.0 g/dL LAB CHEMISTRY METHOD 10/31/2024 8:59 AM [facility] Albumin 3.8 3.2 - 5.0 g/dL LAB CHEMISTRY METHOD 10/31/2024 8:59 AM [facility] Total Bilirubin 0.3 0.0 - 1.4 mg/dL LAB CHEMISTRY METHOD 10/31/2024 8:59 AM [facility] Blood Venous blood specimen / Unknown Venipuncture / Unknown 10/31/2024 7:53 AM EDT 10/31/2024 8:17 AM EDT us Byron James DO LAB BLOOD ORDERABLES Final Result [facility] [address] [place] [address], * ECG 12 lead (10/31/2024 6:41 AM EDT) Ventricular Rate ECG 97 BPM GEMUSE Atrial Rate 97 BPM GEMUSE P-R Interval 110 ms GEMUSE QRS Duration 80 ms GEMUSE Q-T Interval 344 ms GEMUSE QTc 436 ms GEMUSE P Wave [place] 61 degrees GEMUSE R [place] 35 degrees GEMUSE T [place] 35 degrees GEMUSE ECG Interpretation Sinus rhythm with short MD Otherwise normal ECG When compared with ECG of 17-JUL-2022 19:18, No significant change was found Confirmed by MD Cristi, Jaciel ([id number]) on 10/31/2024 4:30:01 PM GEMUSE 10/31/2024 6:41 AM EDT 10/31/2024 4:30 PM EDT us Byron James DO ECG ORDERABLES Final Resul t GEMUSE from Last 3 Months Insurance MEDICAID - [place] Care Teams Body Wirer Relationship Specialty Start Date End Date Nena Morin MD [address] [place] [phone] PCP - General Internal Medicine 10/31/24
== END 2024-11-06 12:35 | disposition home or self-care (01) ==
LOC: HO.CHCLDS 12:34
PROVIDERS: Visit Provider Internal Medicine
DX: Z13.29 Encounter for screening for other suspected endocrine disorder (principal)
CPT/HCPCS: 36415; 84443

== ENCOUNTER 2024-11-23 11:36 | Outpatient (REF) | payer MEDICAID, SELFPAY ==
--- OUTSIDE RECORDS SUMMARY | 2024-11-23 12:29 | XMS_ITS | Clinical Summary ---
Author Organization Patient Business [facility] Address [address] [place] [address] Care Team Providers Care [employer] Supervisor Name Role Phone Nena Morin MD Primary Care Provider [phone] Allergies No known active allergies Medications No known medications Active Problems No known active problems Encounters Date Type Department Care Team Description 11/10/2024 12:49 PM EDT - 11/10/2024 11:59 PM EDT Hospital Encounter [facility] Ultrasound [address] [place] [id number] Abnormal findings on diagnostic imaging of other specified body structures Discharge Disposition: Home or Self Care 10/31/2024 10:17 AM EDT - 10/31/2024 1:08 PM EDT Emergency [facility] Emergency [address] [place] [address] Byron James DO Chest pain, unspecified type [...] Screening 04/12/2023 COVID-19 Vaccine ( season) 2024 Depression Screening 05/03/2024 Influenza Vaccine (#1) 2025 9, 02/23/2017, 01/15/2016, Additional history exists Hypertension/CHF/CAD Annual BMP Blood Test 10/31/2025 10/31/2024 [...] Procedure Name Priority Date/Time Associated Diagnosis Comments US HEAD NECK SOFT TISSUE Routine 11/10/2024 1:10 PM EDT Abnormal findings on diagnostic imaging of other specified body structures CT ANGIO CHEST WO AND/OR W CONTRAST [...] EDT from Last 3 Months Results * US Head Neck Soft Tissue (11/10/2024 1:10 PM EDT) Anatomical Region Laterality Modality Head and Neck Ultrasound 11/13/2024 9:11 AM EDT Impressions 11/13/2024 9:17 AM EDT 21 x 10 x 13 mm solid nodule adjacent to the lower pole of the left thyroid lobe, corresponding to the CT finding visible dating back to 2022. The lesion appears separate from the thyroid, but could potentially represent an exophytic TI-RADS 5 nodule, for which ultrasound-guided FNA would be recommended based on size criteria. The differential diagnosis also includes a parathyroid nodule. Correlation with laboratory findings recommended to exclude parathyroid adenoma. Teledmitri SHOOK ([id number]) -------- FINAL REPORT -------- Dictated By: La Reed Dictated Date: 11/13/2024 09:11 ET Assigned Physician: La Reed Reviewed and Electronically Signed By: La Reed Signed Date: 11/13/2024 09:17 ET Workstation ID: [id number] Transcribed By: Self Edit Transcribed Date: 11/13/2024 09:11 ET Narrative 11/13/2024 9:17 AM EDT HISTORY: 13 x 10 mm soft tissue nodule adjacent to the lower pole of the left thyroid lobe noted on prior CTs dating back to 2022. COMPARISON: Thoracic CTA 10/31/24, neck CT 12/07/22 FINDINGS: High resolution real-time imaging of the thyroid gland was performed. RIGHT LOBE: The right thyroid lobe is normal in size, measuring 5.2 cm in length by 1.6 cm in depth by 1.9 cm in width. The thyroid parenchyma is homogeneous and without focal nodule. LEFT LOBE: The left lobe is normal in size, measuring 4.2 cm in length by 1.3 cm in depth by 1.6 cm in width. Abutting the lower pole of the left thyroid lobe but appearing separate from it is a circumscribed 21 x 10 x 13 mm solid nodule, overall mildly hypoechoic to thyroid parenchyma and containing a few punctate hyperechoic foci suggesting calcification. There are no significant posterior changes. No definite internal vascularity is seen by Doppler analysis. This lesion is felt to correspond to the CT finding which has been stable since 2022. ISTHMUS: The isthmus is normal in thickness, measuring 0.2 cm. No focal nodule is seen. Procedure Note La Reed MD - 11/13/2024 HISTORY: 13 x 10 mm soft tissue nodule adjacent to the lower pole of theleft thyroid lobe noted on prior CTs dating back to 2022. COMPARISON: Thoracic CTA 10/31/24, neck CT 12/07/22 FINDINGS: High resolution real-time imaging of the thyroid gland was performed. RIGHT LOBE: The right thyroid lobe is normal in size, measuring 5.2 cm in length by1.6 cm in depth by 1.9 cm in width. The thyroid parenchyma is homogeneousand without focal nodule. LEFT LOBE: The left lobe is normal in size, measuring 4.2 cm in length by 1.3 cm indepth by 1.6 cm in width. Abutting the lower pole of the left thyroid lobe but appearing separatefrom it is a circumscribed 21 x 10 x 13 mm solid nodule, overall mildlyhypoechoic to thyroid parenchyma and containing a few punctate hyperechoicfoci suggesting calcification. There are no significant posterior changes.No definite internal vascularity is seen by Doppler analysis. This lesionis felt to correspond to the CT finding which has been stable [id number]. ISTHMUS: The isthmus is normal in thickness, measuring 0.2 cm. No focal nodule isseen. IMPRESSION: 21 x 10 x 13 mm solid nodule adjacent to the lower pole of the leftthyroid lobe, corresponding to the CT finding visible dating back to 2022.The lesion appears separate from the thyroid, but could potentiallyrepresent an exophytic TI-RADS 5 nodule, for which ultrasound-guided FNAwould be recommended based on size criteria. The differential diagnosisalso includes a parathyroid nodule. Correlation with laboratory findingsrecommended to exclude parathyroid adenoma. Telerad BOONE ([id number]) -------- FINAL REPORT -------- Dictated By: La Reed Dictated Date: 11/13/2024 09:11 ET Assigned Physician: La Reed Reviewed and Electronically Signed By: La Reed Signed Date: 11/13/2024 09:17 ET Workstation ID: [id number] Transcribed By: Self Edit Transcribed Date: 11/13/2024 09:11 ET us Nena Morin MD IMG US PROCEDURES Final R esult * CT Angio Chest wo and/or w [...] Signed Date: 10/31/2024 12:24 ET Workstation ID: [id number] Transcribed By: Self Edit Transcribed Date: 10/31/2024 [...] Signed Date: 10/31/2024 12:24 ET Workstation ID: [id number] Transcribed By: Self Edit Transcribed Date: 10/31/2024 12:18 ET us Byron James DO IMG CT PROCEDURES Final Res ult * Troponin I high sensitivity (10/31/2024 10:49 AM EDT) Only the most recent of2 resultswithin the time period is included. High Sensitivity Troponin I <3 <=54 ng/L LAB CHEMISTRY METHOD 10/31/2024 12:01 PM EDT [facility] Blood Venous blood specimen / Unknown Venipuncture / Unknown 10/31/2024 10:49 AM EDT 10/31/2024 11:12 AM EDT Narrative [facility] - 10/31/2024 12:01 PM EDT High levels of biotin in samples may falsely decrease hsTroponin values. Use caution when interpreting hsTroponin results in patients taking biotin who exhibit renal impairment (eGFR <60) or in patients taking more than 20 mg/day of biotin. us Byron James DO LAB BLOOD ORDERABLES Final Result [facility] [address] [place] [address], [place] [phone] * XR Chest 2 Views (10/31/2024 9:36 AM EDT) Anatomical Region Laterality Modality Body Radiographic [place] ging 10/31/2024 9:43 AM EDT Impressions 10/31/2024 9:44 AM EDT No acute findings. -------- FINAL REPORT -------- Dictated By: Loki Farley Dictated Date: 10/31/2024 09:43 ET Assigned Physician: Loki Farley Reviewed and Electronically Signed By: Loki Farley Signed Date: 10/31/2024 09:44 ET Workstation ID: [id number] Transcribed By: Self Edit Transcribed Date: 10/31/2024 [...] Signed Date: 10/31/2024 09:44 ET Workstation ID: [id number] Transcribed By: Self Edit Transcribed Date: 10/31/2024 09:43 ET Byron James DO IMG XR PROCEDURES Final Res ult * (ABNORMAL) CBC auto differential (10/31/2024 7:53 AM EDT) WBC 6.4 4.8 - 10.8 K/mcL LAB [facility] RBC 5.20(H) 3.80 - 4.80 M/mcL LAB HEMETOLOGY METHOD 10/31/2024 8:23 AM EDT [facility] Hemoglobin 13.6 11.5 - 16.0 g/dL LAB HEMETOLOGY METHOD 10/31/2024 8:23 AM [facility] Hematocrit 43.8 35.0 - 47.0 % LAB HEMETOLOGY METHOD 10/31/2024 8:23 AM [facility] MCV 83.7 79.0 - 98.0 FL LAB HEMETOLOGY METHOD 10/31/2024 8:23 AM EDT [facility] MCH 26.0(L) 27.0 - 32.0 pcg LAB HEMETOLOGY METHOD 10/31/2024 8:23 AM [facility] MCHC 31.1(L) 32.0 - 37.0 g/dL LAB HEMETOLOGY METHOD 10/31/2024 8:23 AM [facility] RDW 15.2(H) 11.0 - 15.0 % LAB HEMETOLOGY METHOD 10/31/2024 8:23 AM [facility] Platelets 239 130 - 400 K/mcL LAB HEMETOLOGY METHOD 10/31/2024 8:23 AM [facility] MPV 11.6(H) 7.0 - 11.0 FL LAB HEMETOLOGY METHOD 10/31/2024 8:23 AM [facility] NRBC 0.0 <1.0 % LAB HEMETOLOGY METHOD 10/31/2024 8:23 AM [facility] NRBC Absolute 0.00 <0.10 K/mcL LAB HEMETOLOGY METHOD 10/31/2024 8:23 AM [facility] Neutrophils Relative 58.2 % LAB HEMETOLOGY METHOD 10/31/2024 8:23 AM [facility] Lymphocytes Relative 29.8 % LAB HEMETOLOGY METHOD 10/31/2024 8:23 AM [facility] Monocytes Relative 8.0 % LAB HEMETOLOGY METHOD 10/31/2024 8:23 AM [facility] Eosinophils Relative 3.1 % LAB HEMETOLOGY METHOD 10/31/2024 8:23 AM [facility] Basophils Relative 0.3 % LAB HEMETOLOGY METHOD 10/31/2024 8:23 AM [facility] Immature Granulocytes Relative 0.6 % LAB HEMETOLOGY METHOD 10/31/2024 8:23 AM [facility] Neutrophils Absolute 3.71 1.50 - 7.00 K/mcL LAB HEMETOLOGY METHOD 10/31/2024 8:23 AM [facility] Lymphocytes Absolute 1.90 1.00 - 5.00 K/mcL LAB HEMETOLOGY METHOD 10/31/2024 8:23 AM [facility] Monocytes Absolute 0.51 0.20 - 1.00 K/mcL LAB HEMETOLOGY METHOD 10/31/2024 8:23 AM EDT [facility] Eosinophils Absolute 0.20 0.00 - 0.50 K/[facility] LAB HEMETOLOGY METHOD 10/31/2024 8:23 AM EDT [facility] Basophils Absolute 0.02 0.00 - 0.20 K/[facility] LAB HEMETOLOGY METHOD 10/31/2024 8:23 AM EDT [facility] Immature Granulocytes Absolute 0.04(H) 0.00 - 0.03 /[facility] LAB HEMETOLOGY METHOD 10/31/2024 8:23 AM EDT [facility] Blood Venous blood specimen / Unknown Venipuncture / Unknown 10/31/2024 7:53 AM EDT 10/31/2024 8:17 AM EDT Byron James DO LAB BLOOD ORDERABLES Final Result Performing Organization Address City/[facility]/ZIP Co de Phone Number [facility] [address] [place] [address], [place] [phone] * B-type natriuretic peptide (10/31/2024 7:53 AM EDT) Pathologist [facility] BNP 2 <=100 pcg/mL LAB CHEMISTRY METHOD 10/31/2024 8:53 AM EDT [facility] Blood Venous blood specimen / Unknown Venipuncture / Unknown 10/31/2024 7:53 AM EDT 10/31/2024 8:17 AM EDT us Byron James DO LAB BLOOD ORDERABLES Final Result [facility] [address] [place] [address], [place] [phone] * Magnesium (10/31/2024 7:53 AM EDT) Magnesium 2.0 1.9 - 2.6 mg/dL LAB CHEMISTRY METHOD 10/31/2024 8:59 AM EDT [facility] Blood Venous blood specimen / Unknown Venipuncture / Unknown 10/31/2024 7:53 AM EDT 10/31/2024 8:17 AM EDT Byron James DO LAB BLOOD ORDERABLES Final Result Performing Organization Address [facility]/ZIP Co de Phone Number [facility] [address] [place] [address], [place] [phone] * Lipase (10/31/2024 7:53 AM EDT) Pathologist [facility] Lipase 26 13 - 75 unit/L LAB CHEMISTRY METHOD 10/31/2024 8:59 AM EDT [facility] Blood Venous blood specimen / Unknown Venipuncture / Unknown 10/31/2024 7:53 AM EDT 10/31/2024 8:17 AM EDT us Byron James DO LAB BLOOD ORDERABLES Final Result Performing Organization Address [facility] Co de Phone Number [facility] [address] [place] [address], [place] [phone] * Comprehensive metabolic panel (10/31/2024 7:53 AM EDT) Sodium 137 133 - 145 mmol/L LAB CHEMISTRY METHOD 10/31/2024 8:59 AM EDT [facility] Potassium 4.6 3.5 - 5.5 mmol/L LAB CHEMISTRY METHOD 10/31/2024 8:59 AM EDT [facility] Chloride 105 96 - 110 mmol/L LAB CHEMISTRY METHOD 10/31/2024 8:59 AM EDT [facility] CO2 26 21 - 32 mmol/L LAB CHEMISTRY METHOD 10/31/2024 8:59 AM EDT [facility] Anion Gap 6 3 - 11 LAB CHEMISTRY METHOD 10/31/2024 8:59 AM [facility] Glucose 94 70 - 100 mg/dL LAB CHEMISTRY METHOD 10/31/2024 8:59 AM [facility] BUN 12 5 - 25 mg/dL LAB CHEMISTRY METHOD 10/31/2024 8:59 AM [facility] Creatinine 0.78 0.50 - 1.10 mg/dL LAB CHEMISTRY METHOD 10/31/2024 8:59 AM [facility] eGFR 109 >=60 mL/min/1. 73m2 LAB CHEMISTRY METHOD 10/31/2024 8:59 AM [facility] Comment:Calculation based on the Chronic Kidney Disease Epidemiology Collaboration (CKD-EPI) equation refit without adjustment for race. BUN/Creatinine Ratio 15.4 LAB CHEMISTRY METHOD 10/31/2024 8:59 AM [facility] Calcium 9.2 8.5 - 10.5 mg/dL LAB CHEMISTRY METHOD 10/31/2024 8:59 AM [facility] AST (SGOT) 13 10 - 42 unit/L LAB CHEMISTRY METHOD 10/31/2024 8:59 AM [facility] ALT (SGPT) 20 10 - 60 unit/L LAB CHEMISTRY METHOD 10/31/2024 8:59 AM [facility] Alkaline Phosphatase 107 42 - 121 unit/L LAB CHEMISTRY METHOD 10/31/2024 8:59 AM [facility] Total Protein 7.1 6.0 - 8.0 g/dL LAB CHEMISTRY METHOD 10/31/2024 8:59 AM [facility] Albumin 3.8 3.2 - 5.0 g/dL LAB CHEMISTRY METHOD 10/31/2024 8:59 AM [facility] Total Bilirubin 0.3 0.0 - 1.4 mg/dL LAB CHEMISTRY METHOD 10/31/2024 8:59 AM [facility] Blood Venous blood specimen / Unknown Venipuncture / Unknown 10/31/2024 7:53 AM EDT 10/31/2024 8:17 AM EDT Byron James DO LAB BLOOD ORDERABLES Final Result Performing Organization Address [facility]/ZIP Co de Phone Number RADHA [facility] [address] [place] [address], * ECG 12 lead (10/31/2024 6:41 AM EDT) Ventricular Rate ECG 97 BPM GEMUSE Atrial Rate 97 BPM GEMUSE P-R Interval 110 ms GEMUSE QRS Duration 80 ms GEMUSE Q-T Interval 344 ms GEMUSE QTc 436 ms GEMUSE P Wave [place] 61 degrees GEMUSE R [place] 35 degrees GEMUSE T [place] 35 degrees GEMUSE ECG Interpretation Sinus rhythm with short [place] Otherwise normal ECG When compared with ECG of 17-JUL-2022 19:18, No significant change was found Confirmed by MD Cristi, [facility]nila ([id number]) on 10/31/2024 4:30:01 PM GEMUSE 10/31/2024 6:41 AM EDT 10/31/2024 4:30 PM EDT Byron James DO ECG ORDERABLES Final Resul t Performing Organization Address City/[facility] Co de Phone Number GEMUSE from Last 3 Months Insurance [place] Care Teams [place] Supervisor Relationship Specialty Start Date End Date Nena Morin MD [address] [place] [address] [phone] PCP - General Internal Medicine 10/31/24
--- OUTSIDE RECORDS SUMMARY | 2024-11-23 12:29 | XMS_ITS | Encounter Summary ---
Author Organization [employer] Address [address] [place] [address] [address] [place] [address] Care Team Providers Care Flowers Salesperson Name Role Phone Nena Morin MD Primary Care Provider [phone] Encounter Details Date Type Department Care Team ([facility] st Contact Info) Description 06/09/2024 Telephone [facility] MED & PEDS [address], [place] [phone] Nena Morin MD [address] [place] [address] Social History Tobacco Use Types Packs/Day Years [...] as of this encounter Plan of Treatment Not on file documented as of this encounter Visit Diagnoses Not on filedocumented in this encounter Additional Health Concerns Assessment Noted Time PHQ-9 Depression Total Score: 9 02/17/20 23 2:22 PM EDT documented as of this encounter Care Teams Flowers Salesperson Relationship Specialty Start Date End Date Nena Morin MD [address] [place] [id number] PCP - General Internal Medicine 01/20/21 Natividad Suarez Production Line Operator 08/11/24 documented as of this encounter
[2024-11-23 14:29] LABS: Calcium 8.5 mg/dL (8.4-10.2)
[2024-11-23 14:35] LABS: Anion Gap 9 (12-20); Blood Urea Nitrogen 8 mg/dL (9-16); Calcium 8.6 mg/dL (8.4-10.2); Carbon Dioxide 24 mmol/L (22-29); Chloride 110 mmol/L (96-108); Estimated Glomerular Filt Rate > 60; Potassium 4.1 mmol/L (3.3-5.1); Sodium 139 mmol/L (135-145)
[2024-11-23 14:48] LABS: Parathyroid Hormone Intact 100.7 pg/mL (8.7-77.1)
== END 2024-11-23 11:37 | disposition home or self-care (01) ==
LOC: CF 11:36
PROVIDERS: Visit Provider Internal Medicine
DX: E04.1 Nontoxic single thyroid nodule (principal)
CPT/HCPCS: 36415; 80048; 82310; 83970